=== PATIENT | male | born 1940 | race American Indian/Alaskan Native ===

== ENCOUNTER 2017-02-08 11:41 | Observation (INO) | payer MEDICARE, OTHER ==
[~2017-02-08] VITALS: Ht 188 cm; Wt 74.0 kg
[~2017-02-08 11:41] MED LIST: ATOR20TA65 PO; CHLO25TA2 PO; LISI-186 PO; METF850T2 PO
[2017-02-08] MEDS ORDERED: ASPIRIN 81MG TABLET PO ONE (12:15)
[2017-02-08 12:37] LABS: BASOPHILS % 0.9 % (0.0-2.0); HEMATOCRIT. 34.4 % (42.0-52.0); HEMOGLOBIN. 11.7 g/dL (14.0-18.0); LYMPHOCYTES % 14.5 % (20.0-50.0); MEAN CORPUSCULAR HEMOGLOBIN 31.8 pg (28.0-32.0); MEAN CORPUSCULAR VOLUME 93.5 fL (80.0-94.0); MEAN PLATELET VOLUME 8.2 fl (7.4-10.4); MONOCYTES % 9.5 % (2.0-8.0); NEUTROPHILS % 73.1 % (40.0-76.0); PLATELET 164 x1000/uL (130-400); RED BLOOD CELL COUNT 3.68 mill/uL (4.7-6.1); RED CELL DISTRIBUTION WIDTH 14.2 % (11.6-14.6)
[2017-02-08 12:45] LABS: INR 1.2; PROTHROMBIN TIME 12.5 sec
[2017-02-08 12:54] LABS: CARBON DIOXIDE 25 mEq/L (21-32); CHLORIDE 100 mEq/L (98-107); ETHANOL BLOOD < 10 mg/dL; TROPONIN I 0.02 ng/mL (0.00-0.04)
[2017-02-08] MEDS ORDERED: SODIUM CHLORIDE 0.9% 10ML VIAL ONE (14:15)
[2017-02-08] MEDS ORDERED: IOHEXOL-300 100 ML BOTTLE ONE (14:15)
[2017-02-08 15:48] LABS: *AMPHETAMINES SCREEN URINE NEGATIVE (NEGATIVE); *BARBITURATES SCREEN URINE NEGATIVE (NEGATIVE); *BENZODIAZEPINES SCREEN URINE NEGATIVE (NEGATIVE); *COCAINE SCREEN URINE NEGATIVE (NEGATIVE); CANNABINOID URINE SCREEN PRESUMTIVE POSITIVE (NEGATIVE); METHADONE URINE SCREEN NEGATIVE (NEGATIVE); OPIATES URINE SCREEN NEGATIVE (NEGATIVE); PHENCYCLIDINE URINE SCREEN NEGATIVE (NEGATIVE)
[2017-02-08 17:22] VITALS: BP 156/91
[2017-02-08 17:46] VITALS: BP 156/91
[2017-02-08] MEDS ORDERED: ONDANSETRON HCL 4MG/2ML VIAL IV PRN (19:00)
[2017-02-08] MEDS ORDERED: CLONIDINE 0.1MG TABLET PO PRN (19:00)
[2017-02-08] MEDS ORDERED: DOCUSATE SODIUM 100MG CAPSULE PO PRN (19:00)
[2017-02-08] MEDS ORDERED: LACTULOSE 20G/30ML UDC PO PRN (19:00)
[2017-02-08] MEDS ORDERED: HYDROCODONE/ACETAMINOPHEN 5/325MG TABLET PO PRN (19:00)
[2017-02-08 20:00] VITALS: BP 164/73
[2017-02-08] MEDS ORDERED: DEXTROSE 50% WATER 50ML SYRINGE IV PRN (21:00)
[2017-02-08] MEDS ORDERED: ENOXAPARIN 40MG/0.4ML SYR SUBCUT SCH (21:00)
[2017-02-08] MEDS: BLOOD SUGAR DIAGNOSTIC STRIP TEST SCH (21:02)
[2017-02-08] MEDS: INSULIN LISPRO 100 UNITS/ML SUBCUT SCH (21:07)
[2017-02-08 23:25] LABS: CREATINE KINASE MB FRACTION 1.5 ng/mL (0.5-3.6); TROPONIN I 0.05 ng/mL (0.00-0.04)
[2017-02-09] VITALS: BP 125/85
[2017-02-09 04:00] VITALS: BP 123/71
[2017-02-09] MEDS: BLOOD SUGAR DIAGNOSTIC STRIP TEST SCH ×2 (06:08→12:02)
[2017-02-09] MEDS: INSULIN LISPRO 100 UNITS/ML SUBCUT SCH ×2 (06:08→12:03)
[2017-02-09 06:28] LABS: EOSINOPHILS % 4.5 % (0.0-5.0); HEMATOCRIT. 32.7 % (42.0-52.0); HEMOGLOBIN. 11.2 g/dL (14.0-18.0); LYMPHOCYTES % 20.1 % (20.0-50.0); MEAN CORPUSCULAR HEMOGLOBIN 31.8 pg (28.0-32.0); MEAN CORPUSCULAR VOLUME 93.1 fL (80.0-94.0); MEAN PLATELET VOLUME 9.1 fl (7.4-10.4); MONOCYTES % 12.7 % (2.0-8.0); NEUTROPHILS % 61.7 % (40.0-76.0); PLATELET 164 x1000/uL (130-400); RED BLOOD CELL COUNT 3.51 mill/uL (4.7-6.1)
[2017-02-09 07:01] LABS: CARBON DIOXIDE 27 mEq/L (21-32); CHLORIDE 100 mEq/L (98-107); CREATINE KINASE MB FRACTION 1.3 ng/mL (0.5-3.6); LDL CHOLESTEROL 88 mg/dL (5-100); T4 FREE 1.21 ng/dL (0.76-1.46); TROPONIN I 0.04 ng/mL (0.00-0.04)
[2017-02-09 07:04] LABS: CREATINE KINASE 78 IU/L (39-308); HDL CHOLESTEROL 44 mg/dL (40-59)
[2017-02-09 08:00] VITALS: BP 126/86
[2017-02-09] MEDS ORDERED: PNEUMOCOCCAL 23-VAL P-SAC VAC 0.5 ML IM ONE (08:00)
[2017-02-09] MEDS ORDERED: ASPIRIN 81MG EC TABLET PO SCH (09:00)
[2017-02-09 12:00] VITALS: BP 119/68
[2017-02-09 14:41] VITALS: BP 119/68
== END 2017-02-09 15:20 | disposition home or self-care (01) ==
LOC: ER 11:43 → INTOOBSV 16:00 → 5WST 16:00 → EDBEDREQTM 16:04 → EDBEDREQ 16:04 → ENRESERV 16:48
PROVIDERS: ADMIT Internal Medicine; ATTEND Internal Medicine
DX: I24.9 Acute ischemic heart disease, unspecified (principal); K59.00 Constipation, unspecified; E11.9 Type 2 diabetes mellitus without complications; I10 Essential (primary) hypertension; F32.9 Major depressive disorder, single episode, unspecified; N40.0 Benign prostatic hyperplasia without lower urinary tract symptoms; E78.00 Pure hypercholesterolemia, unspecified; I25.10 Atherosclerotic heart disease of native coronary artery without angina pectoris; J44.9 Chronic obstructive pulmonary disease, unspecified; F17.210 Nicotine dependence, cigarettes, uncomplicated; Z95.1 Presence of aortocoronary bypass graft; Z23 Encounter for immunization
CPT/HCPCS: 36415; 71010; 74177; 80053; 80061; 80305; 82550; 82553; 82962; 83690; 83880; 84439; 84443; 84484; 85025; 85610; 90471; 93005; 96372; 99285; A4216; G0378; G0482; J1650; J1815; Q9967; 90732

== ENCOUNTER 2017-03-30 10:59 | Inpatient (IN) | payer MEDICARE, OTHER ==
[~2017-03-30] VITALS: Ht 181.6 cm; Wt 64.0 kg
[2017-03-30] MEDS ORDERED: ASPI-986 PO (11:07)
[2017-03-30] MEDS ORDERED: ONDANSETRON HCL 4MG/2ML VIAL IV STA (11:39)
[2017-03-30] MEDS ORDERED: ASPIRIN 81MG TABLET PO STA (11:39)
[2017-03-30] MEDS ORDERED: METHYLPREDNISOLONE SOD SUCC 125 MG/2 ML VIAL IV STA (11:39)
[2017-03-30] MEDS ORDERED: MORPHINE SULFATE 4 MG/ML CPJ (NOT FOR IM USE) IV STA (11:39)
[2017-03-30] MEDS ORDERED: MAGNESIUM 2 G PREMIX 50 ML IV ONE (11:45)
[2017-03-30] MEDS ORDERED: LEVOFLOXACIN 750MG PREMIX 150 ML IV ONE (11:45)
[2017-03-30] MEDS ORDERED: IPRATROPIUM/ALBUTEROL 0.5-3(2.5)MG/3ML NEB HHN ONE (11:45)
[2017-03-30 12:23] LABS: BASOPHILS % 0.7 % (0.0-2.0); EOSINOPHILS % 0.4 % (0.0-5.0); HEMATOCRIT. 38.7 % (42.0-52.0); HEMOGLOBIN. 13.2 g/dL (14.0-18.0); LYMPHOCYTES % 10.5 % (20.0-50.0); MEAN CORPUSCULAR VOLUME 90.6 fL (80.0-94.0); MEAN PLATELET VOLUME 9.4 fl (7.4-10.4); MONOCYTES % 11.4 % (2.0-8.0); PLATELET 205 x1000/uL (130-400); RED BLOOD CELL COUNT 4.27 mill/uL (4.7-6.1); RED CELL DISTRIBUTION WIDTH 14.8 % (11.6-14.6)
[2017-03-30 12:32] LABS: CHLORIDE 106 mEq/L (98-107); INR 1.3; PARTIAL THROMBOPLASTIN TIME 25.9 sec (23.4-31.0); PROTHROMBIN TIME 13.2 sec (9.4-11.6)
[2017-03-30 12:41] LABS: CARBON DIOXIDE 25 mEq/L (21-32); ETHANOL BLOOD < 10 mg/dL; TROPONIN I 0.03 ng/mL (0.00-0.04)
[2017-03-30 13:15] LABS: *AMPHETAMINES SCREEN URINE NEGATIVE (NEGATIVE); *BARBITURATES SCREEN URINE NEGATIVE (NEGATIVE); *BENZODIAZEPINES SCREEN URINE NEGATIVE (NEGATIVE); *COCAINE SCREEN URINE NEGATIVE (NEGATIVE); CANNABINOID URINE SCREEN PRESUMTIVE POSITIVE (NEGATIVE); METHADONE URINE SCREEN NEGATIVE (NEGATIVE); OPIATES URINE SCREEN NEGATIVE (NEGATIVE); PHENCYCLIDINE URINE SCREEN NEGATIVE (NEGATIVE)
[2017-03-30] MEDS ORDERED: METRONIDAZOLE 500 MG PREMIX 100 ML IV ONE (15:30)
[2017-03-30 15:56] LABS: HEPATITIS B SURFACE ANTIGEN NEGATIVE
[2017-03-30 16:24] LABS: HEPATITIS B CORE AB IGM NEGATIVE
[2017-03-30 16:26] LABS: HEPATITIS A AB IGM NEGATIVE (NEGATIVE)
[2017-03-30 23:00] VITALS: BP 148/90
[2017-03-31] VITALS (8 sets, daily range): BP systolic 109–149; BP diastolic 64–90
[2017-03-31] MEDS ORDERED: DIPHENHYDRAMINE 50MG/ML VIAL IV PRN (01:45)
[2017-03-31] MEDS ORDERED: ONDANSETRON HCL 4MG/2ML VIAL IV PRN (01:45)
[2017-03-31] MEDS ORDERED: IPRATROPIUM/ALBUTEROL 0.5-3(2.5)MG/3ML NEB INH PRN (01:45)
[2017-03-31] MEDS ORDERED: CLONIDINE 0.1MG TABLET PO PRN (01:45)
[2017-03-31] MEDS ORDERED: ACETAMINOPHEN 325MG TABLET PO PRN (01:45)
[2017-03-31] MEDS ORDERED: DEXT 5%/0.45% NACL 1000ML 1,000 ML IV SCH (02:30)
[2017-03-31] MEDS ORDERED: SODIUM CHLORIDE 0.9% 1,000 ML IV SCH (10:30)
[2017-03-31] MEDS: LACTULOSE 20G/30ML UDC PO SCH (15:25)
[2017-03-31] MEDS: SODIUM CHLORIDE 0.9% 1,000 ML IV SCH (15:28)
[2017-03-31 16:30] LABS: CLARITY URINE CLEAR (CLEAR); COLOR URINE DARK YELLOW (YELLOW); GLUCOSE URINE NEGATIVE (NEGATIVE); KETONES URINE TRACE (NEGATIVE); LEUKOCYTE ESTERASE URINE NEGATIVE (NEGATIVE); NITRITE URINE NEGATIVE (NEGATIVE); OCCULT BLOOD URINE TRACE (NEGATIVE); PROTEIN URINE 1+ (NEGATIVE); SPECIFIC GRAVITY URINE 1.017 (1.005-1.030); UROBILINOGEN URINE 0.2 E.U./dL (0.2-1.0)
[2017-03-31 19:10] LABS: PHOSPHORUS 3.1 mg/dL (2.5-4.9)
[2017-04-01] VITALS (11 sets, daily range): BP systolic 126–162; BP diastolic 65–88
[2017-04-01] MEDS: SODIUM CHLORIDE 0.9% 1,000 ML IV SCH ×3 (00:13→22:16)
[2017-04-01 06:11] LABS: HEMATOCRIT. 35.6 % (42.0-52.0); HEMOGLOBIN. 11.9 g/dL (14.0-18.0); PLATELET 185 x1000/uL (130-400); RED BLOOD CELL COUNT 3.96 mill/uL (4.7-6.1); RED CELL DISTRIBUTION WIDTH 14.7 % (11.6-14.6)
[2017-04-01 06:34] LABS: AMMONIA 52 uMol/L (<32)
[2017-04-01 06:47] LABS: CARBON DIOXIDE 25 mEq/L (21-32); CHLORIDE 112 mEq/L (98-107); PHOSPHORUS 2.7 mg/dL (2.5-4.9)
[2017-04-01 06:48] LABS: HDL CHOLESTEROL 25 mg/dL (40-59); LDL CHOLESTEROL 49 mg/dL (5-100)
[2017-04-01] MEDS ORDERED: CLINDAMYCIN 600 MG in DEXTROSE 5% WATER 50 ML IV SCH (07:00)
[2017-04-01] MEDS ORDERED: LIDOCAINE HCL 1% 20ML VIAL (Pyxis) INJ ONE (07:31)
[2017-04-01] MEDS ORDERED: IOHEXOL-300 100 ML BOTTLE ONE (07:31)
[2017-04-01] MEDS ORDERED: SODIUM BICARBONATE 4% (2.4MEQ) 5ML VIAL IV ONE (07:32)
[2017-04-01] MEDS: LACTULOSE 20G/30ML UDC PO SCH (09:52)
[2017-04-01 16:50] LABS: PLATELET ESTIMATE NORMAL
[2017-04-01] MEDS ORDERED: LACTULOSE 20G/30ML UDC PO SCH (17:00)
[2017-04-02] VITALS: BP 144/77
== END 2017-04-02 02:58 | DRG 252 ==
LOC: ER 11:34 → 8WST 15:27 → EDBEDREQ 15:29 → ENRESERV 20:17
PROVIDERS: ADMIT Internal Medicine; ATTEND Internal Medicine
PROC: 06H03DZ Insertion of Intraluminal Device into Inferior Vena Cava, Percutaneous Approach (ICD-10-PCS; principal; 2017-04-01)
PROC: B5191ZA Fluoroscopy of Inferior Vena Cava using Low Osmolar Contrast, Guidance (ICD-10-PCS; 2017-04-01)
PROC: B549ZZA Ultrasonography of Inferior Vena Cava, Guidance (ICD-10-PCS; 2017-04-01)
DX: I82.411 Acute embolism and thrombosis of right femoral vein (principal); K72.00 Acute and subacute hepatic failure without coma; N17.9 Acute kidney failure, unspecified; I82.431 Acute embolism and thrombosis of right popliteal vein; J44.9 Chronic obstructive pulmonary disease, unspecified; E86.0 Dehydration; E11.9 Type 2 diabetes mellitus without complications; K70.9 Alcoholic liver disease, unspecified; I10 Essential (primary) hypertension; E78.00 Pure hypercholesterolemia, unspecified; I25.10 Atherosclerotic heart disease of native coronary artery without angina pectoris; K59.00 Constipation, unspecified; F17.210 Nicotine dependence, cigarettes, uncomplicated; F32.9 Major depressive disorder, single episode, unspecified; Z83.3 Family history of diabetes mellitus; Z86.79 Personal history of other diseases of the circulatory system; Z88.0 Allergy status to penicillin; Z95.1 Presence of aortocoronary bypass graft; Z79.82 Long term (current) use of aspirin; Z79.899 Other long term (current) drug therapy
CPT/HCPCS: 36415; 37191; 71010; 74181; 76705; 80048; 80053; 80061; 80076; 80305; 81001; 82140; 82248; 82570; 82962; 83036; 83605; 83690; 83735; 83880; 83935; 84100; 84134; 84156; 84300; 84443; 84484; 85025; 85610; 85730; 86705; 86709; 86803; 87040; 87086; 87340; 93005; 93306; 93970; 94640; 96365; 96366; 96367; 96368; 96375; 97116; 97162; 97166; 97535; 99285; C1769; C1880; G0482; J1644; J1956; J2270; J2405; J2930; J3475; J3490; J7030; J7060; J7070; J7620; Q9967